=== PATIENT | male | born 1980 | race Caucasian/White ===

== ENCOUNTER 2016-08-20 13:49 | Outpatient (CLI) | payer MEDICAID | END 2016-08-20 23:59 | DX: Z20.2 Contact with and (suspected) exposure to infections with a predominantly sexual mode of transmission (principal) ==

== ENCOUNTER 2016-08-21 13:51 | Outpatient (CLI) | payer MEDICAID | END 2016-08-21 13:52 | disposition home or self-care (01) | DX: Z20.2 Contact with and (suspected) exposure to infections with a predominantly sexual mode of transmission (principal) ==

== ENCOUNTER 2016-10-21 09:06 | Outpatient (CLI) | payer MEDICAID | END 2016-10-21 09:07 | disposition home or self-care (01) | DX: Z00.00 Encounter for general adult medical examination without abnormal findings (principal); Z13.220 Encounter for screening for lipoid disorders ==

== ENCOUNTER 2017-02-24 09:45 | Outpatient (CLI) | payer MEDICAID ==
[2017-02-24 14:21] LABS: ALBUMIN/GLOBULIN RATIO 1.2 (1.0-2.2); BILIRUBIN,TOTAL 0.7 mg/dL (0.2-1.0); BUN - BLOOD UREA NITROGEN 17 mg/dL (6-20); CALCIUM 9.5 mg/dL (8.5-10.3); CARBON DIOXIDE - CO2 28 mmol/L (21-32); CHLORIDE 102 mmol/L (101-111); CHOL/HDL RATIO 6.4 (<5.0); CHOLESTEROL 218 mg/dL; CREATININE 1.1 mg/dL (0.6-1.2); GFR - MDRD 76 (>89); GLUCOSE 97 mg/dL (70-100); HDL CHOLESTEROL 34 mg/dL; LDL/HDL RATIO 4.6 (<3.6); POTASSIUM 4.4 mmol/L (3.5-5.0); SODIUM 136 mmol/L (135-145); TOTAL PROTEIN 7.3 g/dL (6.7-8.2); TRIGLYCERIDES 136 mg/dL; VLDL CHOLESTEROL 27 mg/dL
== END 2017-02-24 09:46 | disposition home or self-care (01) ==
LOC: LAB.WCP 09:45
PROVIDERS: ATTEND Physician Assistant Medical
DX: R74.8 Abnormal levels of other serum enzymes (principal); E78.5 Hyperlipidemia, unspecified
CPT/HCPCS: 36415; 80053; 80061

== ENCOUNTER 2017-03-08 12:34 | Outpatient (CLI) | payer MEDICAID ==
--- NOTE | 2017-03-08 15:39 | Ultrasound Report ---
LIMITED ABDOMEN ULTRASOUND: 03/08/2017 COMPARISON: None. HISTORY: Elevated LFT's TECHNIQUE: Real-time scanning by the application services manager with saved static images reviewed. FINDINGS: Liver: 14.9 cm longitudinal. Increased echogenicity consistent with fatty infiltration. No focal mass lesion. Gallbladder: No stones. Wall thickness 2.2 mm. Common bile duct: 3.8 mm. Right kidney: 10.3 cm longitudinally. No hydronephrosis. Free fluid: None. IMPRESSION: 1. INCREASED HEPATIC ECHOGENICITY CONSISTENT WITH FATTY INFILTRATION. 2. OTHERWISE, NEGATIVE RIGHT UPPER QUADRANT ULTRASOUND. NO GALLSTONES ARE SEEN. JOB #: [id number] EXT JOB #: [id number] [facility]
== END 2017-03-08 12:35 | disposition home or self-care (01) ==
LOC: DI 12:34
PROVIDERS: ATTEND Physician Assistant Medical
DX: R74.8 Abnormal levels of other serum enzymes (principal)
CPT/HCPCS: 76705

== ENCOUNTER 2017-06-25 17:00 | Outpatient (CLI) | payer MEDICAID | END 2017-06-25 17:01 | disposition home or self-care (01) | LOC: LAB.R 17:00 | PROVIDERS: ATTEND Physician Assistant Medical | DX: R31.9 Hematuria, unspecified (principal) | CPT/HCPCS: 87086 ==

== ENCOUNTER 2018-03-23 10:10 | Outpatient (CLI) | payer MEDICAID ==
[2018-03-23 18:53] LABS: BASOPHILS % (AUTO) 0.5 %; EOSINOPHILS # (AUTO) 0.3 10^3/uL (0.0-0.7); EOSINOPHILS % (AUTO) 5.1 %; HGB - HEMOGLOBIN 16.2 g/dL (14.0-18.0); LYMPHOCYTES # (AUTO) 1.6 10^3/uL (1.5-3.5); LYMPHOCYTES % (AUTO) 31.9 %; MEAN CORPUSCULAR HEMOGLOBIN 34.6 pg (27.0-31.0); MEAN CORPUSCULAR HGB CONC 33.9 g/dL (32.0-36.0); MEAN CORPUSCULAR VOLUME 102.1 fL (80.0-94.0); MEAN PLATELET VOLUME 10.9 fL (7.4-11.4); MONOCYTES # (AUTO) 0.6 10^3/uL (0.0-1.0); MONOCYTES % (AUTO) 12.5 %; NEUTROPHILS # (AUTO) 2.5 10^3/uL (1.5-6.6); PLT - PLATELET COUNT 86 10^3/uL (130-450); RED BLOOD COUNT 4.69 10^6/uL (4.70-6.10); RED CELL DISTRIBUTION WIDTH 14.1 % (12.0-15.0)
[2018-03-23 19:04] LABS: ALBUMIN/GLOBULIN RATIO 1.1 (1.0-2.2); ALKALINE PHOSPHATASE 80 IU/L (42-121); ALT ALANINE AMINOTRANSFERASE 78 IU/L (10-60); AST ASPARTATE AMINOTRANSFERASE 79 IU/L (10-42); BILIRUBIN,TOTAL 1.4 mg/dL (0.2-1.0); BUN - BLOOD UREA NITROGEN 11 mg/dL (6-20); CARBON DIOXIDE - CO2 28 mmol/L (21-32); CHLORIDE 101 mmol/L (101-111); CHOLESTEROL 235 mg/dL; CREATININE 0.8 mg/dL (0.6-1.2); GFR - MDRD 109 (>89); GLUCOSE 96 mg/dL (70-100); HDL CHOLESTEROL 39 mg/dL; LDL CHOLESTEROL,CALCULATED 153 mg/dL; LDL/HDL RATIO 3.9 (<3.6); SODIUM 134 mmol/L (135-145); TOTAL PROTEIN 7.5 g/dL (6.7-8.2); VLDL CHOLESTEROL 43 mg/dL
== END 2018-03-23 10:11 | disposition home or self-care (01) ==
LOC: LAB.WCP 10:10
PROVIDERS: ATTEND Physician Assistant Medical
DX: Z00.00 Encounter for general adult medical examination without abnormal findings (principal); K76.0 Fatty (change of) liver, not elsewhere classified; Z12.5 Encounter for screening for malignant neoplasm of prostate; E78.5 Hyperlipidemia, unspecified
CPT/HCPCS: 36415; 80053; 80061; 83721; 84153; 84443; 85025

== ENCOUNTER 2018-10-20 09:45 | Outpatient (CLI) | payer MEDICAID ==
[2018-10-20 14:06] LABS: BASOPHILS % (AUTO) 0.6 %; EOSINOPHILS # (AUTO) 0.4 10^3/uL (0.0-0.7); EOSINOPHILS % (AUTO) 5.8 %; HGB - HEMOGLOBIN 16.2 g/dL (14.0-18.0); LYMPHOCYTES # (AUTO) 1.7 10^3/uL (1.5-3.5); LYMPHOCYTES % (AUTO) 26.7 %; MEAN CORPUSCULAR HEMOGLOBIN 33.1 pg (27.0-31.0); MEAN CORPUSCULAR HGB CONC 33.8 g/dL (32.0-36.0); MEAN PLATELET VOLUME 10.5 fL (7.4-11.4); MONOCYTES # (AUTO) 0.6 10^3/uL (0.0-1.0); MONOCYTES % (AUTO) 10.2 %; NEUTROPHILS # (AUTO) 3.6 10^3/uL (1.5-6.6); NEUTROPHILS % (AUTO) 56.7 %; PLT - PLATELET COUNT 97 10^3/uL (130-450); RED CELL DISTRIBUTION WIDTH 13.7 % (12.0-15.0); WHITE BLOOD COUNT 6.4 x10^3/uL (4.8-10.8)
[2018-10-20 14:26] LABS: ALBUMIN 4.1 g/dL (3.2-5.5); ALBUMIN/GLOBULIN RATIO 1.1 (1.0-2.2); BILIRUBIN,TOTAL 1.5 mg/dL (0.2-1.0); CALCIUM 9.4 mg/dL (8.5-10.3); CREATININE 0.8 mg/dL (0.6-1.2); TOTAL PROTEIN 7.8 g/dL (6.7-8.2)
== END 2018-10-20 09:46 | disposition home or self-care (01) ==
LOC: LAB.WCP 09:45
PROVIDERS: ATTEND Physician Assistant Medical
DX: R10.11 Right upper quadrant pain (principal)
CPT/HCPCS: 36415; 80053; 83690; 85025

== ENCOUNTER 2018-10-23 16:02 | Outpatient (CLI) | payer MEDICAID ==
--- NOTE | 2018-10-24 12:51 | Ultrasound Report ---
Reason: ABDOMINAL PAIN,RIGHT UPPER QUADRANT Procedure Date: 10/23/2018 Accession Number: [id number] / [id number] Procedure: US - Abdomen Limited CPT Code: FULL RESULT: EXAM: ABDOMEN ULTRASOUND LIMITED, RUQ EXAM DATE: 10/23/2018 04:35 PM. CLINICAL HISTORY: Right upper quadrant pain for 2 weeks. COMPARISON: ABDOMEN LIMITED 03/08/2017 1:09 PM. TECHNIQUE: Real-time scanning was performed with static images obtained. FINDINGS: Study is limited by patient body habitus and poor acoustic windows. Liver: Parenchymal echotexture is coarse and echogenic which limits evaluation for underlying masses, none is seen. Right lobe measures at least 17 cm. Main portal vein flow: Hepatopetal. Gallbladder: Normal. No stones, wall thickening, or sonographic Hope's sign. Biliary System: CBD measures 3 mm. No intrahepatic or extrahepatic ductal dilatation. Other: None. IMPRESSION: Increased hepatic parenchymal echogenicity which is nonspecific but can be seen with parenchymal disease such as steatosis. No cholecystitis. [facility]
== END 2018-10-23 16:03 | disposition home or self-care (01) ==
LOC: DI 16:02
PROVIDERS: ATTEND Physician Assistant Medical
DX: R10.11 Right upper quadrant pain (principal)
CPT/HCPCS: 76705

== ENCOUNTER 2018-11-18 11:40 | Outpatient (CLI) | payer MEDICAID ==
[2018-11-18] MEDS ORDERED: SINCALIDE 5 MCG VIAL ONE (12:50)
[2018-11-18] MEDS ORDERED: SINCALIDE 2 MCG in SODIUM CHLORIDE 0.9% 50 ML IV ONE (15:06)
--- NOTE | 2018-11-18 16:10 | Nuclear Medicine Report ---
Reason: ABDOMINAL PAIN, RUQ Procedure Date: 11/18/2018 Accession Number: [id number] / [id number] Procedure: NM - Hepatobiliary HIDA w/ Rx CPT Code: FULL RESULT: EXAM: HEPATOBILIARY SCAN WITH CCK/KINEVAC ADMINISTRATION EXAM DATE: 11/18/2018 02:52 PM. CLINICAL HISTORY: ABDOMINAL PAIN, RUQ. COMPARISON: None. TECHNIQUE: Following the intravenous administration of 5.3 mCi of Tc99m Mebrofenin, a hepatobiliary scan was done centered on the liver and gallbladder in multiple sequential images and projections. Following the intravenous administration of 2.0 mcg of CCK/ Kinevac over the course of approximately 60 minutes, dynamic imaging was done and the gallbladder ejection fraction was calculated. FINDINGS: Normal clearance of blood pool activity indicating grossly normal hepatocellular function. Liver size and shape grossly normal. Appearance of tracer in the biliary tree as early as 5-10 minutes, within normal limits. Appearance of tracer in the gallbladder as early as 10-15 minutes, within normal limits, with good progression of filling throughout the remainder of the initial hour. Appearance of tracer in the small bowel following CCK administration. Following CCK administration, gallbladder ejection fraction is calculated to be 85%, within the normal range (> 35%). There is evidence of mild enterogastric bile reflux. IMPRESSION: 1. No scintigraphic evidence of acute cholecystitis. 2. Patent common bile duct. 3. Gallbladder ejection fraction is in the normal range. 4. Mildly delayed biliary to bowel transit. This is a nonspecific finding that can be seen in a subset of normal patients, however differential considerations include biliary dyskinesia and chronic cholecystitis, among others. 5. Evidence of mild enterogastric bile reflux. RADIA
== END 2018-11-18 11:41 | disposition home or self-care (01) ==
LOC: DI 11:40
PROVIDERS: ATTEND Physician Assistant Medical
DX: R10.11 Right upper quadrant pain (principal); K21.9 Gastro-esophageal reflux disease without esophagitis
CPT/HCPCS: 78227; J7040

== ENCOUNTER 2021-04-24 08:00 | Outpatient (CLI) | payer MEDICAID ==
[2021-04-24 12:09] LABS: BASOPHILS % (AUTO) 0.5 %; EOSINOPHILS # (AUTO) 0.2 10^3/uL (0.0-0.7); EOSINOPHILS % (AUTO) 6.3 %; HCT - HEMATOCRIT 43.8 % (42.0-52.0); HGB - HEMOGLOBIN 14.9 g/dL (14.0-18.0); LYMPHOCYTES # (AUTO) 1.3 10^3/uL (1.5-3.5); LYMPHOCYTES % (AUTO) 34.6 %; MEAN CORPUSCULAR HEMOGLOBIN 35.2 pg (27.0-31.0); MEAN CORPUSCULAR VOLUME 103.5 fL (80.0-94.0); MEAN PLATELET VOLUME 13.2 fL (7.4-11.4); MONOCYTES # (AUTO) 0.4 10^3/uL (0.0-1.0); MONOCYTES % (AUTO) 11.2 %; NEUTROPHILS # (AUTO) 1.8 10^3/uL (1.5-6.6); NEUTROPHILS % (AUTO) 47.1 %; PLT - PLATELET COUNT 57 10^3/uL (130-450); RED BLOOD COUNT 4.23 10^6/uL (4.70-6.10); RED CELL DISTRIBUTION WIDTH 12.5 % (12.0-15.0); WHITE BLOOD COUNT 3.8 x10^3/uL (4.8-10.8)
[2021-04-24 13:14] LABS: ALBUMIN 3.6 g/dL (3.2-5.5); ALBUMIN/GLOBULIN RATIO 1.2 (1.0-2.2); ALKALINE PHOSPHATASE 74 IU/L (42-121); ALT ALANINE AMINOTRANSFERASE 43 IU/L (10-60); AST ASPARTATE AMINOTRANSFERASE 37 IU/L (10-42); BUN - BLOOD UREA NITROGEN 14 mg/dL (6-20); CALCIUM 8.8 mg/dL (8.5-10.3); CARBON DIOXIDE - CO2 26 mmol/L (21-32); CHLORIDE 104 mmol/L (101-111); CHOL/HDL RATIO 5.1 (<5.0); CHOLESTEROL 180 mg/dL; CREATININE 0.9 mg/dL (0.6-1.2); GFR - MDRD 93 (>89); GLUCOSE 97 mg/dL (70-100); HDL CHOLESTEROL 35 mg/dL; LDL CHOLESTEROL,CALCULATED 112 mg/dL; LDL/HDL RATIO 3.2 (<3.6); POTASSIUM 4.1 mmol/L (3.5-5.0); SODIUM 139 mmol/L (135-145); TOTAL PROTEIN 6.7 g/dL (6.7-8.2); TRIGLYCERIDES 163 mg/dL; VLDL CHOLESTEROL 33 mg/dL
[2021-04-24 13:23] LABS: THYROID STIMULATING HORMONE 1.76 uIU/mL (0.34-5.60)
== END 2021-04-24 23:59 | disposition home or self-care (01) ==
LOC: LAB.WCP 08:00
PROVIDERS: ATTEND Physician Assistant Medical
DX: Z00.00 Encounter for general adult medical examination without abnormal findings (principal); E78.5 Hyperlipidemia, unspecified; I10 Essential (primary) hypertension
CPT/HCPCS: 36415; 80053; 80061; 83721; 84443; 85025

== ENCOUNTER 2021-06-08 07:47 | Outpatient (CLI) | payer OTHER ==
--- NOTE | 2021-06-08 14:52 | Ultrasound Report ---
PROCEDURE: Abdomen Complete INDICATIONS: THROMBOCYTOPENIA TECHNIQUE: Real-time scanning was performed of the abdominal and retroperitoneal organs, with image documentatio n. COMPARISON: None. FINDINGS: Liver: Liver is normal in size hepatic echotexture is increased consistent with hepatic steatosis. Gallbladder: A cluster of small stones is seen within the gallbladder with posterior shadowing. Biliary ducts: Intrahepatic bile ducts are non-dilated. Extrahepatic bile duct caliber measures 3 m m. Normal is 6-7 mm or less in diameter, or 10 mm or less post-cholecystectomy. Pancreas: Visualized portions of the pancreas are sonographically normal. Spleen: Spleen is enlarged with no masses. Kidneys: Kidneys are normal in size and echotexture. Ri ght kidney measures 11.3 cm long; left kidney measures 13.2 cm long. No hydronephrosis or nephrolith iasis. No solid masses. Aorta: Visualized aorta is normal in caliber at less than 3 cm. Iliacs: Proximal common iliac arteries are normal in caliber, less than 2.5 cm. IVC: Intrahepatic i nferior vena cava is patent. Miscellaneous: No free abdominal fluid. IMPRESSION: 1. Hepatic steatosis. 2. Cholelithiasis. 3. Splenomegaly. Reviewed by: Forrest Willis on 06/08/2021 1:51 PM [facility] Approved by: Forrest Willis on 06/08/2021 1:51 PM [facility] Station ID: [id number]
== END 2021-06-08 07:48 | disposition home or self-care (01) ==
LOC: DI 07:47
PROVIDERS: ATTEND Internal Medicine Hematology & Oncology
DX: D69.6 Thrombocytopenia, unspecified (principal); K76.0 Fatty (change of) liver, not elsewhere classified; K80.20 Calculus of gallbladder without cholecystitis without obstruction; R16.1 Splenomegaly, not elsewhere classified

== ENCOUNTER 2021-07-28 09:14 | Outpatient (CLI) | payer OTHER ==
[2021-07-28] MEDS ORDERED: IOPAMIDOL-300 50 ML VIAL ONE (09:35)
[2021-07-28] MEDS ORDERED: IOVERSOL 320 100 ML VIAL IVP ONE ×2 (10:22→16:14)
--- NOTE | 2021-07-28 14:38 | CT Report ---
PROCEDURE: CT neck with contrast INDICATIONS: Neutrophilia, thrombocytopenia, splenomegaly CONTRAST: IV CONTRAST: Optiray 320 ml: 100 PO CONTRAST: Isovue 300 ml50 TECHNIQUE: After the administration of intravenous contrast, 3.0 mm axial sections acquired from the sella to th e aortic arch. Additional oblique axial 3.0 mm sections acquired through the pharynx. 3 mm thick co estelita reformats were generated. For radiation dose reduction, the following was used: automated exp osure control, adjustment of mA and/or kV according to patient size. COMPARISON: None. FINDINGS: Image quality: Excellent. Lymph nodes: No enlarged lymph nodes seen throughout the neck. Vessels: Visualized vasculature appears patent. Neck spaces: The oropharynx, nasopharynx, and pharynx demonstrate no mucosal lesions. The vocal cor ds, false vocal cords, pyriform sinuses, epiglottis, vallecula, and tongue base all appear normal. E xtramucosal spaces appear unremarkable. Glands: The parotid and submandibular glands appear normal. The thyroid is normal in size and there are no incidental findings. Miscellaneous: Visualized brain and orbits appear normal. Lung apices appear clear. Superficial so ft tissues appear normal. Bones: No suspicious bony lesions. Visualized sinuses and mastoids appear unremarkable. Mild degen erative disc disease at C5-6 results in moderate bilateral foraminal stenosis. IMPRESSION: No evidence of adenopathy. 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
[2021-07-28] MEDS ORDERED: IOPAMIDOL-300 50 ML VIAL PO ONE (16:14)
--- NOTE | 2021-07-28 17:10 | CT Report ---
PROCEDURE: CHEST W INDICATIONS: HEPATOMEGALY CONTRAST: IV CONTRAST: Optiray 320 ml: 100 PO CONTRAST: Isovue 300 ml50 TECHNIQUE: After the administration of intravenous contrast, 1 mm axial images were acquired from the pulmonary apices through the posterior costophrenic angles. Axial 5 mm soft tissue kernel reconstructions were performed as well as 8 mm axial MIP and coronal and sagittal 5 mm reformations. For radiation dose reduction, the following was used: automated exposure control, adjustment of mA and/or kV according to patient size. COMPARISON: Correlation is made with a filling soft tissue CT and abdomen and pelvis CT, 07/28/2021. FINDINGS: Image quality: Excellent. Lungs and pleura: No acute air space opacities. No pleural effusions or pneumothorax. Central and peripheral airways are patent and normal in caliber. Mediastinum: Heart size is normal. No pericardial effusion. No mediastinal or hilar adenopathy by size criteria. Thoracic aorta and central pulmonary arteries are normal in size. Esophagus is mona l in caliber. There is a small hiatal hernia. Bones and chest wall: No suspicious bony lesions. There is accentuated thoracic kyphosis. No vert ebral body compression fractures. No axillary or supraclavicular adenopathy by size criteria. The t hyroid is normal in size and there are no incidental findings.. Abdomen: The spleen is enlarged, measuring 18.2 cm AP. Diffuse fatty liver infiltration can be seen. The visualized portions of the upper abdominal structures are otherwise within normal limits. IMPRESSION: No enlarged lymph nodes can be seen within the mediastinum, perihilar regions, axillary regions, supr aclavicular regions, or within the upper abdomen. Splenomegaly is seen. Incidental note is made of: Small hiatal hernia Fatty liver infiltration Reviewed by: Deshawn Dan MD on 07/28/2021 4:09 PM [place] Approved by: Deshawn Dan MD on 07/28/2021 4:09 PM [facility] Station ID: [id number]
--- NOTE | 2021-07-28 21:08 | CT Report ---
PROCEDURE: Abdomen/Pelvis W INDICATIONS: HEPATOMEGALY CONTRAST: IV CONTRAST: Optiray 320 ml: 100 PO CONTRAST: Isovue 300 ml50 TECHNIQUE: After the administration of oral and intravenous contrast, 5 mm thick sections acquired from the diap hragms to the symphysis. 5 mm thick coronal and sagittal reformats were acquired. For radiation dos e reduction, the following was used: automated exposure control, adjustment of mA and/or kV accordin g to patient size. COMPARISON: Ultrasound abdomen 06/08/2021 FINDINGS: Image quality: Excellent. ABDOMEN: Lung bases: Lung bases are clear. Heart size is normal. No pericardial effusion. Inferior ribs ar e intact. No basal pleural effusions or pneumothorax. Solid organs: Liver is normal in size and enhancement, without lacerations. Steatosis is present. Ga llbladder is unremarkable. The spleen is enlarged measuring 16.3 cm. This is unchanged compared to pr ior exam. Biliary system is non-dilated. Pancreas enhances normally, without transection. No adren al hematomas. Both kidneys enhance normally, without hydronephrosis or lacerations. Peritoneum and bowel: No free fluid or air. Unenhanced bowel loops are nonobstructive. There is a f ocal loop of descending colon within the left hemiabdomen seen on series 3 images 44 through 48 demon strating minimal appearance of surrounding pericolonic stranding. No definitive bowel loop thickening is identified. Nodes and vessels: No retroperitoneal or mesenteric adenopathy. Aorta and inferior vena cava are no rmal in size and enhancement. Miscellaneous: No ventral hernias. PELVIS: Genitourinary: Bladder wall thickness is normal. Miscellaneous: No inguinal hernias or adenopathy. Bones: Pelvic ring and hip joints appear intact. No vertebral compression fractures. IMPRESSION: Unchanged thyromegaly without focal mass. Focal loop of descending colon with pericolonic stranding. While the stranding could be related to fo hanh area of inflammation either within the mesenteric fat or early changes of bowel inflammation rela lyssa to colitis, there also appears to be mild prominence of mesenteric vessels within this region of uncertain etiology. No priors are available for comparison. Recommend correlation to patient's sympto ms and short interval imaging follow-up to document resolution if related to infection or inflammatio n. However other etiologies such as malignancy cannot be definitively excluded although appearance is overall nonspecific. Reviewed by: Sujatha Iglesias MD on 07/28/2021 9:06 PM PST Approved by: Sujatha Iglesias MD on 07/28/2021 9:06 PM PST Station ID: [id number]
== END 2021-07-28 09:15 | disposition home or self-care (01) ==
LOC: DI 09:14
PROVIDERS: ATTEND Internal Medicine Hematology & Oncology
DX: M50.322 Other cervical disc degeneration at C5-C6 level (principal); M48.02 Spinal stenosis, cervical region; R16.1 Splenomegaly, not elsewhere classified; E01.0 Iodine-deficiency related diffuse (endemic) goiter; D69.6 Thrombocytopenia, unspecified
CPT/HCPCS: 70491; 71260; 74177; Q9967

== ENCOUNTER 2021-08-24 13:29 | Outpatient (CLI) | payer OTHER ==
--- NOTE | 2021-08-24 13:45 | XRAY Report ---
PROCEDURE: Cervical Spine 2 View INDICATIONS: NECK PAIN TECHNIQUE: 3 view(s) of the cervical spine were acquired. COMPARISON: None. FINDINGS: Bones: No fractures or dislocations to the T1 level. The lateral masses of C1 appear intact on the odontoid view. No suspicious bony lesions. Cervical spondylosis is centered at C5-C6. There is trac e degenerative retrolisthesis of C5 on C6 with likely associated uncovertebral joint osteophytes. Soft tissues: No prevertebral soft tissue swelling. IMPRESSION: 1. Cervical spondylosis. 2. No evidence acute bony abnormality of the cervical spine. If clinical suspicion and/or symptoms persist, further assessment with advanced imaging (e.g., CT, MR I, or bone scan) may be helpful for further assessment. Reviewed by: Armand Jhaveri MD on 08/24/2021 12:44 PM [facility] Approved by: Armand Jhaveri MD on 08/24/2021 12:44 PM [facility] Station ID: [id number]
== END 2021-08-24 23:59 | disposition home or self-care (01) ==
LOC: DI.N 13:29
PROVIDERS: ATTEND Family Medicine
DX: M47.812 Spondylosis without myelopathy or radiculopathy, cervical region (principal)

== ENCOUNTER 2022-09-29 10:31 | Day surgery (SDC) | payer OTHER ==
[2022-09-29] MEDS ORDERED: PROPOFOL 500 MG/50 ML 500 MG/50 ML VIAL ONE (10:56)
--- NOTE | 2022-09-29 10:59 | ANESTHESIA ---
Pre-Anesthesia VS, & Labs - Diagnosis chronic diarrhea, abdominal pain - Procedure colonoscopy, EGD Vital Signs: Temp Pulse Resp BP Pulse Ox O2 Flow Rate 36.1 C L 83 23 123/90 H 99 09/29/22 10:46 09/29/22 10:46 09/29/22 10:46 09/29/22 10:46 09/29/22 10:46 Height: 5 ft 9 in Weight (kg): 89 kg Body Mass Index: 29.0 BMI Classification: Overweight - NPO Other Home Medications and Allergies Home Medications: Ambulatory Orders tiZANidine [Zanaflex] 1 tab PO PRN PRN 09/28/22 traZODone [Desyrel] 100 mg PO DAILY 05/30/21 Sertraline [Zoloft] 40 mg PO DAILY 05/22/22 tiZANidine [Zanaflex] 1 tab PO PRN PRN 09/28/22 Allergies/Adverse Reactions: Allergies Allergy/AdvReac Type Severity Reaction Status Date / Time amoxicillin Allergy Hives Verified 09/28/22 13:20 Anes History & Medical History - Anesthetic History Anesthesia Complications: reports: No previous complications - Medical History Cardiovascular: reports: Hypertension Pulmonary: reports: None Gastrointestinal: reports: None Urinary: reports: None Musculoskeletal: reports: Chronic back pain Endocrine/Autoimmune: reports: None Skin: reports: Other Smoking Status: Never smoker - Surgical History General: reports: Hiatal hernia repair - Other History Other History: ITP Exam General: Alert, Oriented x3, Cooperative Dental: WNL Mouth Opening: Greater than 4 Fingerbreadths Neck Mobility: Normal Mallampati classification: II Thyromental Distance: greater than 6 cm Respiratory: Lungs clear Cardiovascular: Regular rate Plan Anesthesia Type: Total IV Consent for Procedure(s) Verified and Reviewed: Yes Code Status: Attempt Resuscitation ASA classification: 2-Mild systemic disease Is this case an emergency?: No
[2022-09-29] MEDS ORDERED: LACTATED RINGERS 1,000 ML IV ONE (11:06)
[2022-09-29] MEDS ORDERED: LIDOCAINE-MPF 2% 5 ML VIAL ONE (12:00)
[2022-09-29] MEDS ORDERED: PROPOFOL 200 MG/20 ML VIAL IVP ONE (12:49)
[2022-09-29] MEDS ORDERED: LACTATED RINGERS 700 ML IV ONE (13:09)
[2022-09-29 13:34] VITALS: BP 116/82
--- NOTE | 2022-09-29 14:13 | ANESTHESIA POST OP EVALUATION ---
Anesthesia Post Eval - Post Anesthesia Eval Vitals: Last Vital Signs Temp 36.2 C L 09/29/22 13:20 Pulse 77 09/29/22 13:33 Resp 17 09/29/22 13:33 BP 116/82 H 09/29/22 13:33 Pulse Ox 100 09/29/22 13:33 O2 Flow Rate CV Function Including HR & BP: Stable Pain Control: Satisfactory Nausea & Vomiting: Negative Mental Status: Baseline Respiratory Status: Airway Patent Hydration Status: Satisfactory Anesthesia Complications: None
== END 2022-09-29 10:32 | disposition home or self-care (01) ==
LOC: SDS 10:31
PROVIDERS: ATTEND Surgery
PROC: 0DBL8ZX Excision of Transverse Colon, Via Natural or Artificial Opening Endoscopic, Diagnostic (ICD-10-PCS; 2022-09-29)
PROC: 0DBN8ZX Excision of Sigmoid Colon, Via Natural or Artificial Opening Endoscopic, Diagnostic (ICD-10-PCS; 2022-09-29)
PROC: 0DBM8ZX Excision of Descending Colon, Via Natural or Artificial Opening Endoscopic, Diagnostic (ICD-10-PCS; 2022-09-29)
PROC: 0DB98ZX Excision of Duodenum, Via Natural or Artificial Opening Endoscopic, Diagnostic (ICD-10-PCS; 2022-09-29)
PROC: 0DB78ZX Excision of Stomach, Pylorus, Via Natural or Artificial Opening Endoscopic, Diagnostic (ICD-10-PCS; 2022-09-29)
PROC: 0DBB8ZX Excision of Ileum, Via Natural or Artificial Opening Endoscopic, Diagnostic (ICD-10-PCS; principal; 2022-09-29 11:30)
PROC: 0DBK8ZX Excision of Ascending Colon, Via Natural or Artificial Opening Endoscopic, Diagnostic (ICD-10-PCS; 2022-09-29 11:30)
DX: K52.9 Noninfective gastroenteritis and colitis, unspecified (principal); R10.13 Epigastric pain; R63.4 Abnormal weight loss; Z68.29 Body mass index [BMI] 29.0-29.9, adult; K21.9 Gastro-esophageal reflux disease without esophagitis; Z87.19 Personal history of other diseases of the digestive system; K29.50 Unspecified chronic gastritis without bleeding
CPT/HCPCS: 43239; 45380; J7120

== ENCOUNTER 2023-05-12 16:19 | Outpatient (CLI) | payer OTHER ==
[2023-05-12] MEDS ORDERED: ALBUTEROL 1 PUFF INH STA (18:13)
== END 2023-05-12 16:20 | disposition home or self-care (01) ==
LOC: RT 16:19
PROVIDERS: ATTEND Family Medicine
DX: E88.01 Alpha-1-antitrypsin deficiency (principal)
CPT/HCPCS: 94060; 94727; 94729

== ENCOUNTER 2023-07-28 08:26 | Outpatient (CLI) | payer OTHER ==
--- NOTE | 2023-07-28 16:21 | XRAY Report ---
PROCEDURE: Chest 2V INDICATIONS: MILD COPD TECHNIQUE: 2 views of the chest were acquired. COMPARISON: CT chest 07/28/2021 FINDINGS: Surgical changes and devices: None. Lungs and pleura: No pleural effusions or pneumothorax. Lungs are clear. Mediastinum: Mediastinal contours appear normal. Heart size is normal. Bones and chest wall: No suspicious bony lesions. Overlying soft tissues appear unremarkable. IMPRESSION: No acute cardiopulmonary process. Reviewed by: Sujatha Iglesias MD on 07/28/2023 4:19 PM PST Approved by: Sujatha Iglesias MD on 07/28/2023 4:19 PM [facility] Station ID: [id number]
== END 2023-07-28 08:27 | disposition home or self-care (01) ==
LOC: DI 08:26
PROVIDERS: ATTEND Family Medicine
DX: J44.9 Chronic obstructive pulmonary disease, unspecified (principal)

== ENCOUNTER 2024-01-06 12:52 | Outpatient (CLI) | payer OTHER ==
[2024-01-06 13:02] LABS: BASOPHILS % (AUTO) 0.4 %; EOSINOPHILS # (AUTO) 0.2 10^3/uL (0.0-0.7); EOSINOPHILS % (AUTO) 4.4 %; HCT - HEMATOCRIT 44.2 % (42.0-52.0); HGB - HEMOGLOBIN 14.6 g/dL (14.0-18.0); LYMPHOCYTES # (AUTO) 0.7 10^3/uL (1.5-3.5); LYMPHOCYTES % (AUTO) 15.2 %; MEAN CORPUSCULAR HEMOGLOBIN 32.4 pg (27.0-31.0); MEAN PLATELET VOLUME 11.4 fL (7.4-11.4); MONOCYTES # (AUTO) 0.6 10^3/uL (0.0-1.0); MONOCYTES % (AUTO) 13.1 %; NEUTROPHILS # (AUTO) 3.1 10^3/uL (1.5-6.6); NEUTROPHILS % (AUTO) 66.3 %; PLT - PLATELET COUNT 68 10^3/uL (130-450); RED BLOOD COUNT 4.51 10^6/uL (4.70-6.10); RED CELL DISTRIBUTION WIDTH 13.7 % (12.0-15.0); WHITE BLOOD COUNT 4.7 x10^3/uL (4.8-10.8)
== END 2024-01-06 12:53 | disposition home or self-care (01) ==
LOC: LAB 12:52
PROVIDERS: ATTEND Family Medicine
DX: D61.818 Other pancytopenia (principal)
CPT/HCPCS: 36415; 85025